=== PATIENT | female | born 1965 | race Caucasian/White ===

== ENCOUNTER 2017-01-11 10:27 | Inpatient (IN) | payer MEDICAID ==
[~2017-01-11] VITALS: Ht 162.6 cm; Wt 63.5 kg
[2017-01-11 10:30] VITALS: BP 86/73
[2017-01-11] MEDS ORDERED: Naloxone 1mg/ml 2ml IVP PRN (10:45)
[2017-01-11 11:23] LABS: ABG ALLEN TEST POSITIVE; ABG PCO2 43.3 mmHg (35.0-45.0)
[2017-01-11 11:29] LABS: BASOPHILS % (AUTO) 1.8 % (0.0-2.0); EOSINOPHILS % (AUTO) 4.9 % (0.0-3.0); LYMPHOCYTES % (AUTO) 41.6 % (20.0-45.0); MEAN CORPUSCULAR HEMOGLOBIN 31.6 PG (27.0-31.0); MEAN CORPUSCULAR HGB CONC 34.9 G/DL (32.0-36.0); MEAN CORPUSCULAR VOLUME 90 FL (80-99); MONOCYTES % (AUTO) 9.2 % (1.0-10.0); NEUTROPHILS % (AUTO) 42.6 % (45.0-75.0); PLATELET COUNT 233 K/UL (150-450); RED BLOOD COUNT 4.89 M/UL (4.20-5.40); RED CELL DISTRIBUTION WIDTH 11.6 % (11.6-14.8); WHITE BLOOD COUNT 6.1 K/UL (4.8-10.8)
--- NOTE | 2017-01-11 11:52 | Diagnostic Imaging Report ---
Indication: Altered mental status Technique: Continuous helical CT scanning of the head was performed without intravenous contrast material. Axial and coronal 5 mm sections were generated. Radiation dose was minimized using automated exposure control Dose: Total Dose Length Product - DLP [address] Dose Index - CTDIvol(s) 70.38 mGy. Comparison: None Findings: The ventricular system is normal in size and configuration. There is no shift of midline structures. No abnormal extra-axial fluid collections are noted. There is no evidence of intracerebral bleeding. No other abnormal high or low density areas are noted within the brain. Intact calvarium. Visualized orbits and sinuses are unremarkable. Impression: Normal CT scan of the head without contrast material. The CT scanner at [facility] is accredited by the [employer] and the scans are performed using protocols designed to limit radiation exposure to as low as reasonably achievable to attain images of sufficient resolution adequate for diagnostic evaluation.
[2017-01-11 11:57] LABS: ACETAMINOPHEN < 10 ug/mL (10-30); ALANINE AMINOTRANSFERASE 49 U/L (3-33); ALCOHOL < 10 mg/dL; ANION GAP 12 (5-15); ASPARTATE AMINO TRANSFERASE 37 U/L (5-40); CALCIUM 8.7 mg/dL (8.6-10.2); CARBON DIOXIDE 26 mEQ/L (20-30); CHLORIDE 102 mEQ/L (98-107); CREATININE 0.6 mg/dL (0.5-0.9); GLOMERULAR FILTRATION RATE > 60 mL/min (>60); HEMOLYSIS 10; SODIUM 140 mEQ/L (135-145); TOTAL PROTEIN 5.8 g/dL (6.6-8.7)
[2017-01-11 12:00] VITALS: BP 107/53
[2017-01-11 12:08] LABS: THYROID STIMULATING HORMONE 0.005 uIU/mL (0.300-4.500)
[2017-01-11] MEDS ORDERED: PROGESTERONE100 MG PO (12:13)
[2017-01-11 13:38] VITALS: BP 105/77
[2017-01-11 14:30] VITALS: BP 120/61
[2017-01-11] MEDS ORDERED: Morphine Sulfate 2mg/ml Inj IVP PRN (14:30)
[2017-01-11] MEDS ORDERED: LORazepam Inj 2mg/ml 1ml IV PRN (14:30)
[2017-01-11] MEDS ORDERED: Biest SL (14:32)
[2017-01-11] MEDS ORDERED: NATURE-THROI16.25 MG PO (14:32)
[2017-01-11] MEDS ORDERED: Testosterone (14:32)
--- NOTE | 2017-01-11 15:05 | Emergency Room Report ---
History of Present Illness General Chief Complaint: Altered Level of Consciousness Source: Patient, Friend, Significant Other Present Illness HPI This patient is brought in by EMS. She is brought in by her roommate. She was her normal self before bed last night. This was around 11:30 PM. Her friend and boyfriend do note that the patient is going to see her mother and this does cause her anxiety. She states that she had been having difficulty sleeping for the past few days. However, she presents with decreased mental status. He the roommate called EMS because when she tried to wake her she was very lethargic and sleepy and unresponsive to her. Per report from the boyfriend and her roommate, the patient tries to be very healthy. She goes to homeopathic physician for which she gets many homeopathic/herbal supplements. The remaining notes that she couldn't fill the trash bag with a number of herbal supplements that she is taking. She takes these supplements for a adrenal fatigue, thyroid dysfunction. At one point she was diagnosed with pre-diabetes and was on metformin but takes only herbal supplementation and no longer takes metformin. She has recently started on another herbal supplement for her adrenal gland. The boyfriend and roommate adamantly deny any use of alcohol, narcotics or drugs of any sort. She did have some CBD in essential oil form that she has previously used without issue. This was obtained from a medical marijuana distributor. Allergies: Coded Allergies: PENICILLINS (Verified Allergy, Unknown, 01/11/17) PROPOFOL (Verified Allergy, Unknown, 01/11/17) Patient History Past Medical History: see triage record, other - Thyroid disorder, Pre-DM, Adrenal fatigue Social History: Denies: alcohol use, drug use, smoking Reviewed Nursing Documentation: PMH: Agreed, PSxH: Agreed Nursing Documentation-PMH Past Medical History: No History, Except For Review of Systems All Other Systems: negative except mentioned in HPI Physical Exam Vital Signs Date Time Temp Pulse Resp B/P Pulse Ox O2 Delivery O2 Flow Rate FiO2 01/11/17 10:21 97.2 94 16 108/71 99 Room Air Sp02 EP Interpretation: reviewed, normal General Appearance: no apparent distress, GCS 15, non-toxic, other - Sleepy, arousable to yes/no. Unable to complete a sentence before falling asleep. Head: normocephalic, atraumatic Eyes: bilateral eye PERRL, bilateral eye normal inspection ENT: hearing grossly normal, normal pharynx, no angioedema, normal voice Neck: full range of motion, supple/symm/no masses Respiratory: chest non-tender, lungs clear, normal breath sounds, speaking full sentences Cardiovascular #1: regular rate, rhythm, no edema Gastrointestinal: normal bowel sounds, non tender, soft, non-distended, no guarding, no rebound Rectal: deferred Musculoskeletal: normal inspection, back normal, normal range of motion Neurologic: alert, responsive, motor strength/tone normal, sensory intact, other - Non-focal. Psychiatric: other - Unable to fully assess. Skin: normal color, no rash, warm/dry, well hydrated Medical Decision Making Diagnostic Impression: Primary Impression: Decreased level of consciousness ER Course This patient presented with decreased level of consciousness. She was nonfocal neurologically. Although the patient did not have small pupils, given her level of consciousness I thought it was possible she could have took an opioid and I did give the patient Narcan. The patient did become significantly more alert. She also had a couple episodes of vomiting just after being given the Narcan. Over the patient ED course she became more more alert and returned to her baseline mental status. Laboratory workup to include CBC, CMP, cardiac enzymes, thyroid panel showed no contributing findings. The patient had a significantly low TSH, but a normal free T4. FreeT3 is pending at the time of this dictation. Urine drug screen and laboratory screen were negative. I suspect that this patient is on many supplements that possibly contributed to the patient's mental status. These supplements or not regulated and it is difficult to determine what is in them. The patient also took some substance that was thought to be CBD. This could have been a contributing factor. Regardless, the patient's mental status cleared and initially cleared mostly with Narcan. The patient adamantly denies use of any opioids or any other substances other than the homeopathic supplements that she had been given. She denied use of benzodiazepines or melatonin. I feel this patient should be admitted overnight for observation for concerned that she could have recurrence of her decreased mental status. Therefore, she was admitted for further monitoring. Labs Test 01/11/17 10:40 01/11/17 11:20 White Blood Count 6.1 K/UL (4.8-10.8) Red Blood Count 4.89 M/UL (4.20-5.40) Hemoglobin 15.4 G/DL (12.0-16.0) Hematocrit 44.2 % (37.0-47.0) Mean Corpuscular Volume 90 FL (80-99) Mean Corpuscular Hemoglobin 31.6 PG (27.0-31.0) Mean Corpuscular Hemoglobin Concent 34.9 G/DL (32.0-36.0) Red Cell Distribution Width 11.6 % (11.6-14.8) Platelet Count 233 K/UL (150-450) Mean Platelet Volume 8.0 FL (6.5-10.1) Neutrophils (%) (Auto) 42.6 % (45.0-75.0) Lymphocytes (%) (Auto) 41.6 % (20.0-45.0) Monocytes (%) (Auto) 9.2 % (1.0-10.0) Eosinophils (%) (Auto) 4.9 % (0.0-3.0) Basophils (%) (Auto) 1.8 % (0.0-2.0) Prothrombin Time 10.0 SEC (9.30-11.50) Prothromb Time International Ratio 1.0 (0.9-1.1) Activated Partial Thromboplast Time 26 SEC (23-33) Sodium Level 140 mEQ/L (135-145) Potassium Level 4.0 mEQ/L (3.4-4.9) Chloride Level 102 mEQ/L (98-107) Carbon Dioxide Level 26 mEQ/L (20-30) Anion Gap 12 (5-15) Blood Urea Nitrogen 8 mg/dL (7-23) Creatinine 0.6 mg/dL (0.5-0.9) Estimat Glomerular Filtration Rate > 60 mL/min (>60) Glucose Level 133 mg/dL (74-106) Lactic Acid Level 0.90 mmol/L (0.66-2.22) Calcium Level 8.7 mg/dL (8.6-10.2) Total Bilirubin 0.9 mg/dL (0.0-1.2) Aspartate Amino Transf (AST/SGOT) 37 U/L (5-40) Alanine Aminotransferase (ALT/SGPT) 49 U/L (3-33) Alkaline Phosphatase 57 U/L (35-104) Total Protein 5.8 g/dL (6.6-8.7) Albumin 3.9 g/dL (3.5-5.2) Globulin 1.9 g/dL Albumin/Globulin Ratio 2.0 (1.0-2.7) Thyroid Stimulating Hormone (TSH) 0.005 uIU/mL (0.300-4.500) Free Thyroxine 1.61 ng/dL (0.86-1.85) Salicylates Level < 1 mg/dL (10-30) Urine Opiates Screen Negative (NEGATIVE) Acetaminophen Level < 10 ug/mL (10-30) Urine Barbiturates Screen Negative (NEGATIVE) Phencyclidine (PCP) Screen Negative (NEGATIVE) Urine Amphetamines Screen Negative (NEGATIVE) Urine Benzodiazepines Screen Negative (NEGATIVE) Urine Cocaine Screen Negative (NEGATIVE) Urine Marijuana (THC) Screen Negative (NEGATIVE) Serum Alcohol < 10 mg/dL Arterial Blood pH 7.410 (7.350-7.450) Arterial Blood Partial Pressure CO2 43.3 mmHg (35.0-45.0) Arterial Blood Partial Pressure O2 78.0 mmHg (75.0-100.0) Arterial Blood HCO3 27.0 mmol/L (22.0-26.0) Arterial Blood Oxygen Saturation 95.2 % (92.0-98.0) Arterial Blood Base Excess 2.0 Skyler Test Positive EKG Diagnostic Results Rate: normal Rhythm: NSR ST Segments: no acute changes Rhythm Strip Diag. Results EP Interpretation: yes Rate: 80's Rhythm: NSR, no PVC's, no ectopy CT/MRI/US Diagnostic Results CT/MRI/US Diagnostic Results : Imaging Test Ordered: CT head Impression Impression: Normal CT scan of the head without contrast material. Last Vital Signs Date Time Temp Pulse Resp B/P Pulse Ox O2 Delivery O2 Flow Rate FiO2 01/11/17 13:38 98.0 90 23 105/77 96 01/11/17 12:00 Room Air Disposition: ADMITTED INPATIENT Condition: Stable Referrals: [facility],REFERR[facility] (PCP) SHOBHA ABEBE D.O. Jan 11, 2017 15:05
[2017-01-11] MEDS ORDERED: D5 1/2NS 1,000 ML IV SCH (15:30)
[2017-01-11 16:00] VITALS: BP 134/76
[2017-01-11] MEDS ORDERED: Heparin 5000 units/ml inj SUBQ SCH (21:00)
--- NOTE | 2017-01-12 08:42 | Discharge Summary ---
Discharge Summary Hospital Course Date of Admission Jan 11, 2017 at 13:20 Date of Discharge Jan 11, 2017 at 18:32 Admitting Diagnosis AMS HPI Chantell De La Cruz is a 51 year old female who was admitted on Jan 11, 2017 at 13: 20 for Altered Mental Status Hospital Course dc summary #[id number] Discharge Condition Upon Discharge: stable Discharge Disposition Patient signed AMA Discharge Diagnoses: Discharge Instructions Discharge Instructions Special Instructions I have been assigned to complete a D/C Summary on this account. I was not involved in the patient management Joann Reyes NP (Vanchtein) Jan 12, 2017 08:42
--- NOTE | 2017-01-13 02:01 | Discharge Summary 2 SIG ---
DATE OF ADMISSION: 01/11/2017 DATE OF SIGNING AGAINST MEDICAL ADVISE: 01/11/2017 REASON FOR ADMISSION: 51-year-old female, was brought to emergency room for evaluation. According to her roommate, the patient had altered level of consciousness and decreased mentation. Per patient's boyfriend and roommate , the patient is overall very healthy. She has no underlying medical history and going to homeopathic physician to get multiple homeopathic/herbal supplements for adrenal fatigue and thyroid dysfunction. At one point, she was diagnosed with prediabetes and was on metformin, but currently only taking herbal supplement and no longer metformin. The boyfriend and roommate denied any use of alcohol, narcotics, or drugs. She had some CBD and essential oil that she was previously used, which was obtained from [employer] distributor. Workup in the emergency room revealed that urine tox screen was negative. Serum alcohol was less than 10. ABG was stable. EKG showed normal sinus rhythm. Vital signs were stable. CT of the head revealed no acute intracranial pathology. The patient was sleepy, but arousable. She was nonfocal neurologically. The patient was administered Narcan, given her level of consciousness, and subsequently the patient became significantly more alert. She had couple episodes of vomiting after Narcan was given, but became more alert and mental status returned to baseline. Zofran was provided, IV bolus was provided. The patient was admitted for observation for further monitoring. ADMITTING DIAGNOSIS: 1. Altered level of consciousness. 2. Uncontrolled use of multiple herbal supplements 3. Episode of vomiting ( likely due to side effect of Narcan) HOSPITAL STAY: The patient was admitted to the medical/surgical floor for observation. It was felt that most likely her contributing factor to altered level of consciousness was due to interaction of multiple homeopathic supplements since they are not officially regulated and it is impossible to check what is in them. Some of the substances, that she had , included CBD. Workup was all negative, including urine tox screen and CT of the head. Mental status stabilized , back to normal. TSH was low at 0.005, however, free T4 and T3 were within normal limits. The patient decided to sign against medical advice , after she transferred to the floor. All risks and consequences of signing against medical advice were explained to the patient. The patient insisted and signed the form. DISCHARGE DIAGNOSIS: 1. Altered level of consciousness ( likely due to interaction between multiple herbal supplements) -resolved 2. Uncontrolled use of multiple herbal supplements 3, Episode of vomiting ( likely due to side effect fo Narcan) 4. Thyroid dysfunction Santana Crenshaw M.D. I have been assigned to dictate discharge summary on this account and I was not involved in the patient's management. Joann Reyes (HildaAnshul francis DR: NAREN JOB#: [id number] CC: MARTI
== END 2017-01-11 18:32 | disposition left against medical advice (07) | DRG 861 ==
LOC: EDBD 10:27 → EMR 10:47 → 2E 13:20 → EDBEDREQ 13:38
DX: R41.82 Altered mental status, unspecified (principal); E07.9 Disorder of thyroid, unspecified; R11.10 Vomiting, unspecified; Z88.4 Allergy status to anesthetic agent; Z88.0 Allergy status to penicillin
CPT/HCPCS: 36415; 36600; 70450; 80053; 80300; 80301; 80329; 82803; 83605; 84439; 84443; 84481; 85025; 85610; 85730; 93005; J2310; J2405